=== PATIENT | male | born 1975 | race Caucasian/White ===

== ENCOUNTER 2019-11-16 13:44 | Emergency (ER) | payer OTHER ==
[2019-11-16 14:03] VITALS: BP 141/88; PULSE 97; TEMP 99.2; BMI 30.2
[2019-11-16] MEDS ORDERED: SODIUM CHLORIDE 1,000 ML IV STA ×2 (14:03→15:30)
[2019-11-16] MEDS ORDERED: ACETAMINOPHEN 1000 MG/100 ML VIAL (NON FORMULARY) IVPB ONE (14:03)
[2019-11-16] MEDS ORDERED: ONDANSETRON 4 MG/2 ML VIAL IVPUSH ONE (14:03)
--- NOTE | 2019-11-16 14:04 | PDOC ---
Rapid Medical Evaluation Time Seen by Provider: 11/16/19 13:59 Medical Evaluation: Allergies Allergy/AdvReac Type Severity Reaction Status Date / Time No Known Allergies Allergy Verified 07/18/15 19:37 11/16/19 14:00 Pt presents for abdominal pain and vomiting starting at 10 last night. NBNB. Denies diarrhea. Also endorses epigastric pain. Exam: TTP of the epigastric region Orders: labs, IV, meds Pt to proceed to the ER for further evaluation Discharge Disposition - Diagnosis Abdominal pain Qualifiers: Abdominal location: epigastric Qualified Code(s): R10.13 - Epigastric pain - Referrals - Patient Instructions - Post Discharge Activity
[2019-11-16] MEDS ORDERED: ACETAMINOPHEN INJECTION 100 ML IVPB ONE (14:28)
[2019-11-16] MEDS ORDERED: ONDANSETRON 4 MG/2 ML VIAL ONE (14:28)
[2019-11-16 15:15] LABS: BASO % 0.2 % (0-2.0); HEMATOCRIT 47.3 % (35.4-49); MCH 29.6 pg (25.7-33.7); MCHC 33.8 g/dl (32.0-35.9); MEAN CELL VOLUME 87.6 fl (80-96); MEAN PLT VOLUME 8.8 fl (7.5-11.1); MONO % 6.6 % (3.8-10.2); NEUT % 86.2 % (42.8-82.8); PLATELET COUNT 289 K/MM3 (134-434); RDW 12.6 % (11.9-15.9); WHITE BLOOD COUNT 16.9 K/mm3 (4.0-10.0)
[2019-11-16 15:17] LABS: PH,URINE 8.5 (5.0-8.0); URINE APPEARANCE CLEAR; URINE BILIRUBIN NEGATIVE (NEGATIVE); URINE COLOR YELLOW; URINE GLUCOSE (UA) NEGATIVE (NEGATIVE); URINE KETONE NEGATIVE (NEGATIVE); URINE LEUK ESTERASE NEGATIVE (NEGATIVE); URINE NITRITE NEGATIVE (NEGATIVE); URINE PROTEIN TRACE (NEGATIVE)
--- NOTE | 2019-11-16 15:37 | PDOC ---
History of Present Illness - General Chief Complaint: Nausea/Vomiting Stated Complaint: ABD PAIN Time Seen by Provider: 11/16/19 13:59 History Source: Patient Exam Limitations: No Limitations - History of Present Illness Travel History: No Initial Comments: 11/16/19 15:33 43-year-old male presents to ED with complaint of nausea vomiting since last night now associated with 2 episodes of diarrhea. Patient states has not eaten since last night and has yellowish color emesis upon vomiting. Patient denies fever, chills, recent travel, recent illness, or urinary complaints. Patient denies GI history or alcohol abuse. Patient denies cough chest pain or shortness of breath 11/16/19 15:36 Timing/Duration: reports: constant Quality: reports: mild, moderate, burning, sharpness Abdominal Pain Onset Location: reports: epigastric Pain Radiation: reports: no radiation Activities at Onset: reports: none Aggravating Factors: improves with: None Alleviating Factors: improves with: None Past History - Travel Traveled outside of the country in the last 30 days: No Close contact w/someone who was outside of country & ill: No - Past Medical History Allergies/Adverse Reactions: Allergies Allergy/AdvReac Type Severity Reaction Status Date / Time No Known Allergies Allergy Verified 11/16/19 14:01 Home Medications: Ambulatory Orders NK [No Known Home Medication] 11/16/19 COPD: No - Immunization History Immunization Up to Date: No - Psycho Social/Smoking Cessation Hx Smoking History: Never smoked Have you smoked in the past 12 months: No Hx Alcohol Use: No Drug/Substance Use Hx: No Substance Use Type: None Patient Lives Alone: No Lives with/in: spouse/SO Abd/GI Specific PMHX - Complaint Specific PMHX Colitis: No GERD: No Irritable Bowel Synd (IBS): No Pancreatitis: No Review of Systems - Review of Systems Able to Perform ROS?: Yes Constitutional: No: Symptoms Reported HEENTM: No: Symptoms Reported Respiratory: No: Symptoms reported Cardiac (ROS): No: Symptoms Reported ABD/GI: Yes: Diarrhea, Nausea, Poor Appetite, Poor Fluid Intake, Vomiting, Indigestion, Abdominal cramping : No: Symptoms Reported Musculoskeletal: No: Symptoms Reported Integumentary: No: Symptoms Reported Neurological: No: Headache Hematologic/Lymphatic: No: Symptoms Reported *Physical Exam - Vital Signs Last Vital Signs Temp Pulse Resp BP Pulse Ox 99.2 F 97 H 16 141/88 99 11/16/19 14:01 11/16/19 14:01 11/16/19 14:01 11/16/19 14:01 11/16/19 14:01 - Physical Exam General Appearance: Yes: Nourished, Appropriately Dressed. No: Apparent Distress HEENT: negative: Pale Conjunctivae Neck: positive: Supple Respiratory/Chest: positive: Lungs Clear, Normal Breath Sounds. negative: Respiratory Distress, Accessory Muscle Use Cardiovascular: positive: Regular Rhythm, Regular Rate. negative: Murmur Gastrointestinal/Abdominal: positive: Soft, Tenderness (Epigastric) Musculoskeletal: negative: CVA Tenderness Extremity: positive: Normal Inspection Integumentary: positive: Normal Color, Warm, Moist Neurologic: positive: Motor Strength 5/5 (Ambulatory) ED Treatment Course - LABORATORY CBC & Chemistry Diagram: 11/16/19 14:40 11/16/19 14:40 - ADDITIONAL ORDERS Additional order review: Laboratory Results 11/16/19 14:35 Urine Color Yellow Urine Appearance Clear Urine pH 8.5 H Ur Specific [place] 1.029 Urine Protein Trace Urine Glucose (UA) Negative Urine Ketones Negative Urine Blood Negative Urine Nitrite Negative Urine Bilirubin Negative Urine Urobilinogen 1.0 Ur Leukocyte Esterase Negative 11/16/19 14:40 RBC 5.40 MCV 87.6 MCHC 33.8 RDW 12.6 MPV 8.8 Neutrophils % 86.2 H D Lymphocytes % 7.0 L D Monocytes % 6.6 Eosinophils % 0.0 D Basophils % 0.2 - Medications Given in the ED: ED Medications Discontinued Medications Generic Name Dose Route Start Last Admin Trade Name Esteban PRN Reason Stop Dose Admin Acetaminophen 1,000 mg 11/16/19 14:03 11/16/19 14:48 Ofirmev Injection - IVPB 11/16/19 14:04 1,000 mg ONCE ONE Administration Sodium Chloride 1,000 mls @ 1,000 mls/hr 11/16/19 14:03 11/16/19 14:35 Normal Saline - IV 11/16/19 15:02 1,000 mls/hr ASDIR STA Administration Ondansetron HCl 4 mg 11/16/19 14:03 11/16/19 14:40 Zofran Injection IVPUSH 11/16/19 14:04 4 mg ONCE ONE Administration Medical Decision Making - Medical Decision Making 11/16/19 15:38 Chief complaint: Nausea vomiting diarrhea with epigastric pain since last night worsening this a.m. Exam: Patient epigastric tenderness no CVA tenderness Plan: Patient had labs urine meds ordered from E patient with continual discomfort. Patient ordered for second liter of fluid along with Protonix. Chemistry still pending. Explained to patient imaging may be ordered based on remaining labs 11/16/19 15:39 Laboratory Tests 11/16/19 11/16/19 14:35 14:40 WBC 16.9 H Hgb 16.0 Hct 47.3 Absolute Neuts (auto) 14.6 H Neutrophils % 86.2 H D Lymphocytes % 7.0 L D Urine pH 8.5 H Urine Ketones Negative Urine Bilirubin Negative Ur Leukocyte Esterase Negative Discharge - Discharge Information Problems reviewed: Yes Clinical Impression/Diagnosis: Abdominal pain Qualifiers: Abdominal location: epigastric Qualified Code(s): R10.13 - Epigastric pain Condition: Fair Disposition: HOME - Follow up/Referral Referrals: Luis Kurtz MD [Staff Physician] - Mary Ribeiro [Primary Care Provider] - - Patient Discharge Instructions Additional Instructions: You have a cyst on your liver. It is important that you follow-up up with gastroenterology for reevaluation. Your liver function testing in the blood is normal. Eat a bland diet. Avoid spicy or fatty foods. Avoid alcohol. Take Tylenol or Motrin as needed for pain. Return to the emergency department for any new or worsening symptoms. Thank you very much for choosing us to provide your emergent healthcare needs. Tienes un quiste en el hgado. Es importante que realice un seguimiento con gastroenterologa para la reevaluacin. Livier pruebas de funcin heptica en la wil son normales. Coma rosemary dieta blanda. Evite los alimentos picantes o grasos. Evite el alcohol. [place] Tylenol o Motrin segn sea necesario para el dolor. Regrese al departamento de emergencias por cualquier sntoma nuevo o que empeore. Muchas eloisa por elegirnos para satisfacer livier necesidades de atencin mdica emergentes. - Post Discharge Activity
[2019-11-16 16:39] LABS: ALBUMIN 4.4 g/dl (3.4-5.0); ALK PHOS 84 U/L (45-117); ANION GAP 7 MMOL/L (8-16); BILIRUBIN,TOTAL 0.8 mg/dL (0.2-1); BLOOD UREA NITROGEN 8.7 mg/dL (7-18); CALCIUM 9.5 mg/dL (8.5-10.1); CHLORIDE 103 mmol/L (98-107); CO2 27 mmol/L (21-32); CREATININE 1.2 mg/dL (0.55-1.3); GLUCOSE,RANDOM 101 mg/dL (74-106); LIPASE 62 U/L (73-393); POTASSIUM 4.1 mmol/L (3.5-5.1); SGOT/AST 23 U/L (15-37); SGPT/ALT 41 U/L (13-61); SODIUM 137 mmol/L (136-145); TOT PROT 8.2 g/dl (6.4-8.2)
[2019-11-16] MEDS ORDERED: FAMOTIDINE 20 MG TABLET PO ONE (16:54)
[2019-11-16] MEDS ORDERED: MAG HYDROX/AL HYDROX/SIMETH 30 ML UNIT-DOSE CUP PO ONE (16:54)
[2019-11-16] MEDS ORDERED: FAMOTIDINE 20 MG TABLET ONE (16:55)
[2019-11-16] MEDS ORDERED: MAG HYDROX/AL HYDROX/SIMETH 30 ML UNIT-DOSE CUP ONE (16:55)
--- NOTE | 2019-11-16 17:05 | PDOC ---
*Physical Exam - Vital Signs Last Vital Signs Temp Pulse Resp BP Pulse Ox 99.2 F 97 H 16 141/88 99 11/16/19 14:01 11/16/19 14:01 11/16/19 14:01 11/16/19 14:01 11/16/19 14:01 - Physical Exam General Appearance: Yes: Appropriately Dressed. No: Apparent Distress Respiratory/Chest: positive: Lungs Clear, Normal Breath Sounds. negative: Respiratory Distress, Accessory Muscle Use Cardiovascular: positive: Regular Rhythm, Regular Rate, S1, S2. negative: Edema , Murmur Gastrointestinal/Abdominal: positive: Normal Bowel Sounds, Tender (epigastrum), Soft, Guarding Musculoskeletal: positive: Normal Inspection. negative: CVA Tenderness ED Treatment Course - LABORATORY CBC & Chemistry Diagram: 11/16/19 14:40 11/16/19 14:40 - ADDITIONAL ORDERS Additional order review: Laboratory Results 11/16/19 11/16/19 14:40 14:35 Sodium 137 Potassium 4.1 Chloride 103 Carbon Dioxide 27 Anion Gap 7 L BUN 8.7 Creatinine 1.2 Est GFR (CKD-EPI)AfAm 86.53 Est GFR (CKD-EPI)NonAf 74.66 Random Glucose 101 Calcium 9.5 Total Bilirubin 0.8 AST 23 ALT 41 Alkaline Phosphatase 84 Total Protein 8.2 Albumin 4.4 Lipase 62 L Urine Color Yellow Urine Appearance Clear Urine pH 8.5 H Ur Specific [place] 1.029 Urine Protein Trace Urine Glucose (UA) Negative Urine Ketones Negative Urine Blood Negative Urine Nitrite Negative Urine Bilirubin Negative Urine Urobilinogen 1.0 Ur Leukocyte Esterase Negative 11/16/19 14:40 RBC 5.40 MCV 87.6 MCHC 33.8 RDW 12.6 MPV 8.8 Neutrophils % 86.2 H D Lymphocytes % 7.0 L D Monocytes % 6.6 Eosinophils % 0.0 D Basophils % 0.2 - RADIOLOGY Radiology Studies Ordered: Category Date Time Status ABDOMEN US -LIMITED [US] Stat Ultrasound 11/16/19 16:39 Ordered - Medications Given in the ED: ED Medications Discontinued Medications Generic Name Dose Route Start Last Admin Trade Name Freq PRN Reason Stop Dose Admin Acetaminophen 1,000 mg 11/16/19 14:03 11/16/19 14:48 Ofirmev Injection - IVPB 11/16/19 14:04 1,000 mg ONCE ONE Administration Al Hydroxide/Mg Hydroxide 30 ml 11/16/19 16:54 11/16/19 16:58 Mylanta Oral Suspension - PO 11/16/19 16:55 30 ml ONCE ONE Administration Famotidine 20 mg 11/16/19 16:54 11/16/19 16:59 Pepcid - PO 11/16/19 16:55 20 mg ONCE ONE Administration Sodium Chloride 1,000 mls @ 1,000 mls/hr 11/16/19 14:03 11/16/19 14:35 Normal Saline - IV 11/16/19 15:02 1,000 mls/hr ASDIR STA Administration Sodium Chloride 1,000 mls @ 1,000 mls/hr 11/16/19 15:30 11/16/19 16:00 Normal Saline - IV 11/16/19 16:29 1,000 mls/hr ASDIR STA Administration Ondansetron HCl 4 mg 11/16/19 14:03 11/16/19 14:40 Zofran Injection IVPUSH 11/16/19 14:04 4 mg ONCE ONE Administration ED Progress Note - Progress Note Progress Note: 11/16/19 17:02 Received signout from nurse practitioner Sam. Briefly this a 43-year-old male presents emergency department with epigastric pain and vomiting starting last night. Patient reports his pain is currently 9/ 10 and worsens with deep inspiration. Patient has received 2 L of IV fluids and Zofran prior to signout. Patient with continued pain despite fluids and medications. Labs notable for white count of 16,900 with left shift. Chemistries are pending at signout. Disposition is pending laboratory studies. Medical Decision Making - Medical Decision Making 11/16/19 17:04 Laboratory Tests 11/16/19 11/16/19 11/16/19 14:35 14:40 14:40 WBC 16.9 H RBC 5.40 Hgb 16.0 Hct 47.3 MCV 87.6 MCH 29.6 MCHC 33.8 RDW 12.6 Plt Count 289 D MPV 8.8 Absolute Neuts (auto) 14.6 H Neutrophils % 86.2 H D Lymphocytes % 7.0 L D Monocytes % 6.6 Eosinophils % 0.0 D Basophils % 0.2 Nucleated RBC % 0 Sodium 137 Potassium 4.1 Chloride 103 Carbon Dioxide 27 Anion Gap 7 L BUN 8.7 Creatinine 1.2 Est GFR (CKD-EPI)AfAm 86.53 Est GFR (CKD-EPI)NonAf 74.66 Random Glucose 101 Calcium 9.5 Total Bilirubin 0.8 AST 23 ALT 41 Alkaline Phosphatase 84 Total Protein 8.2 Albumin 4.4 Lipase 62 L Urine Color Yellow Urine Appearance Clear Urine pH 8.5 H Ur Specific [place] 1.029 Urine Protein Trace Urine Glucose (UA) Negative Urine Ketones Negative Urine Blood Negative Urine Nitrite Negative Urine Bilirubin Negative Urine Urobilinogen 1.0 Ur Leukocyte Esterase Negative As patient is having epigastric pain I will get a chest x-ray, right upper quadrant ultrasound, cardiac profile and EKG. Less likely pancreatitis given lipase of 62 and normal liver function testing. Maalox 30 cc orally now Pepcid 20 mg orally now Reassess 11/16/19 19:52 Abdominal ultrasound is read by Dr. Subramanian: No evidence of cholelithiasis or acute cholecystitis. Diffuse fatty infiltration of the liver with left lobe cyst. No discrete intrahepatic masses are identified. Chest x-ray as read by Dr. Subramanian: Normal chest exam. EKG sinus rhythm with rate of 95. Normal intervals present with QTC 470 ms. Normal axis. No ischemic changes noted. Initial troponin is negative. Pain is improved after receiving morphine. Discharge home with GI follow-up Discharge - Discharge Information Problems reviewed: Yes Clinical Impression/Diagnosis: Abdominal pain Qualifiers: Abdominal location: epigastric Qualified Code(s): R10.13 - Epigastric pain Condition: Fair Disposition: HOME - Admission No - Follow up/Referral Referrals: Mary Ribeiro [Primary Care Provider] - Luis Kurtz MD [Staff Physician] - - Patient Discharge Instructions Additional Instructions: You have a cyst on your liver. It is important that you follow-up up with gastroenterology for reevaluation. Your liver function testing in the blood is normal. Eat a bland diet. Avoid spicy or fatty foods. Avoid alcohol. Take Tylenol or Motrin as needed for pain. Return to the emergency department for any new or worsening symptoms. Thank you very much for choosing us to provide your emergent healthcare needs. Tienes un quiste en el hgado. Es importante que realice un seguimiento con gastroenterologa para la reevaluacin. Livier pruebas de funcin heptica en la wil son normales. Coma rosemary dieta blanda. Evite los alimentos picantes o grasos. Evite el alcohol. [place] Tylenol o Motrin segn sea necesario para el dolor. Regrese al departamento de emergencias por cualquier sntoma nuevo o que empeore. Muchas eloisa por elegirnos para satisfacer livier necesidades de atencin mdica emergentes. - Post Discharge Activity
[2019-11-16] MEDS ORDERED: morphine CARPU-JECT 4 MG/1 ML DISP.SYRIN IVPUSH ONE (19:13)
[2019-11-16] MEDS ORDERED: morphine SULFATE 4 MG/ML VIAL ONE (19:16)
--- NOTE | 2019-11-17 14:28 | EKG ---
Test Reason : Blood Pressure : / mmHG Vent. Rate : 095 BPM Atrial Rate : 095 BPM P-R Int : 132 ms QRS Dur : 082 ms QT Int : 332 ms P-R-T Axes : 041 042 008 degrees QTc Int : 417 ms POOR DATA QUALITY, INTERPRETATION MAY BE ADVERSELY AFFECTED NORMAL SINUS RHYTHM NORMAL ECG NO PREVIOUS ECGS AVAILABLE Confirmed by KAREN MANCIA MD ([id number]) on 11/17/2019 2:28:27 PM Referred By: Confirmed By:KAREN MANCIA MD
== END 2019-11-16 20:56 | disposition home or self-care (01) ==
LOC: JER 13:44
PROC: 3E0337Z Introduction of Electrolytic and Water Balance Substance into Peripheral Vein, Percutaneous Approach (ICD-10-PCS; principal; 2019-11-16)
PROC: 3E033NZ Introduction of Analgesics, Hypnotics, Sedatives into Peripheral Vein, Percutaneous Approach (ICD-10-PCS; 2019-11-16)
PROC: 3E033GC Introduction of Other Therapeutic Substance into Peripheral Vein, Percutaneous Approach (ICD-10-PCS; 2019-11-16)
PROC: 3E033NZ Introduction of Analgesics, Hypnotics, Sedatives into Peripheral Vein, Percutaneous Approach (ICD-10-PCS; 2019-11-16)
DX: R10.13 Epigastric pain (principal)
CPT/HCPCS: 36415; 71046-TC-FY; 76705-TC; 80053; 81003; 82550; 83690; 84484; 85025; 87086; 93005; 93010; 99283-25; J0131; J7030

== ENCOUNTER 2025-02-17 03:31 | Emergency (ER) | payer OTHER ==
[2025-02-17 03:38] VITALS: BP 134/96; PULSE 96; RESP 18; TEMP 98.6; BMI 30.1
[2025-02-17] MEDS ORDERED: KETOROLAC TROMETHAMINE 15 MG/ML VIAL ONE (04:30)
[2025-02-17] MEDS ORDERED: ONDANSETRON 4 MG/2 ML VIAL ONE (04:30)
[2025-02-17] MEDS: SODIUM CHLORIDE 0.9% 500 ML INFUS.BAG IV ONE (04:41)
[2025-02-17] MEDS: KETOROLAC TROMETHAMINE 15 MG/ML VIAL IVPUSH ONE (04:41)
[2025-02-17] MEDS: ONDANSETRON 4 MG/2 ML VIAL IVPUSH ONE (04:42)
[2025-02-17 06:44] LABS: PH,URINE 5.5 (5.0-8.0); URINE APPEARANCE CLEAR; URINE BILIRUBIN NEGATIVE (NEGATIVE); URINE COLOR YELLOW; URINE GLUCOSE (UA) NEGATIVE (NEGATIVE); URINE KETONE 1+ (NEGATIVE); URINE LEUK ESTERASE NEGATIVE (NEGATIVE); URINE NITRITE NEGATIVE (NEGATIVE); URINE PROTEIN NEGATIVE (NEGATIVE); URINE UROBILINOGEN 0.2 mg/dL (0.2-1.0)
== END 2025-02-17 06:56 | disposition home or self-care (01) ==
LOC: JER 03:31
PROC: 3E0333Z Introduction of Anti-inflammatory into Peripheral Vein, Percutaneous Approach (ICD-10-PCS; principal; 2025-02-17)
PROC: 3E033GC Introduction of Other Therapeutic Substance into Peripheral Vein, Percutaneous Approach (ICD-10-PCS; 2025-02-17)
DX: N13.2 Hydronephrosis with renal and ureteral calculous obstruction (principal); R10.12 Left upper quadrant pain; R10.32 Left lower quadrant pain
CPT/HCPCS: 81003; 87086; 99284-25